=== PATIENT | female | born 1980 | race Caucasian/White ===

== ENCOUNTER 2017-12-20 11:39 | Emergency (ER) | payer OTHER ==
[2017-12-20] MEDS ORDERED: ONDANSETRON 4 MG/2 ML VIAL ONE ×2 (12:02→13:08)
[2017-12-20 12:14] LABS: Absolute Lymphocytes (CBC) 0.9 K/uL (0.7-4.9); Absolute Monocytes 0.7 K/uL (0.1-1.3); Absolute Neutrophil 6.4 K/uL (1.8-8.0); Basophils % 0.2 % (0-1.3); Eosinophils % 0.6 % (0-4.4); Lymphocytes % 11.4 % (15.3-44.8); MCH 32.1 pg (27.0-35.0); MCV 94.2 fL (80-100); MPV 7.7 fL (7.6-11.3); Monocytes % 8.3 % (3.3-12.3); RBC Red Blood Cell Count 4.35 M/uL (3.86-4.86)
--- NOTE | 2017-12-20 12:23 | RAD REPORT ---
EXAM DESCRIPTION: CT - Head Brain Wo Cont - 12/20/2017 12:08 pm CLINICAL HISTORY: Headache COMPARISON: None. TECHNIQUE: Computed axial tomography of the head was obtained. IV contrast was not requested. All CT scans are performed using dose optimization technique as appropriate and may include automated exposure control or mA/KV adjustment according to patient size. FINDINGS: An intracranial bleed is not seen . The ventricles are normal in caliber. No extra-axial fluid collection is noted. Fluid within the sinuses/ mastoids is not seen. IMPRESSION: No acute intracranial abnormality is seen. If patient's symptoms persist MRI of the bra in would be recommended.
[2017-12-20 12:41] LABS: BUN Blood Urea Nitrogen 10 mg/dL (7-18); Bicarbonate 23 mmol/L (21-32); Glucose Level 94 mg/dL (74-106); Magnesium 1.7 mg/dL (1.8-2.4); Sodium Level 139 mmol/L (136-145)
[2017-12-20 12:44] LABS: Potassium 2.6 mmol/L (3.5-5.1)
[2017-12-20] MEDS ORDERED: POTASSIUM CL SA 10 MEQ TAB PO ONE (13:08)
[2017-12-20] MEDS ORDERED: MAGNESIUM SULFATE 1 gm IVPB 1 GM/100 ML BAG IV ONE (13:08)
[2017-12-20] MEDS ORDERED: NA CHLORIDE 0.9% 1,000 ML ONE (13:09)
[2017-12-20] MEDS ORDERED: KCL 20 MEQ/100 mL IVPB 20 MEQ/100 ML BAG IV ONE (13:09)
[2017-12-20 14:23] LABS: Urine Bacteria <20 /HPF (<20); Urine Culture Reflex Order NOT NEEDED; Urine RBC NONE SEEN /HPF (NONE SEEN)
[2017-12-20 14:25] LABS: Urine Blood NEGATIVE (NEG); Urine Glucose NEGATIVE (NEG); Urine Protein NEGATIVE (NEG); Urine Specific Gravity 1.015 (1.005-1.030)
--- NOTE | 2017-12-20 14:30 | ER ---
Nurse's Notes [facility] Name: Radha Love Age: 36 yrs Sex: Female : 1980 Arrival Date: 12/20/2017 Time: 11:41 Bed 4 Private MD: Diagnosis: Dehydration;Hypokalemia;Hypomagnesemia;Heat exhaustion, unspecified Presentation: 12/20 11:50 Presenting complaint: EMS states: Pt was out on the water, began to experience severe ph cramping/pain in L arm and hand and then the same pain in the R hand and arm, unable to obtain automatic BP, 140/98 manual HR 110, Pt awake but not verbally responsive for EMS, hx of HTN and Salmon's Palsy. (Pt noted to be A\T\O x 4 upon arrival to ED). Transition of care: patient was not received from another setting of care. Onset of symptoms was December 20, 2017. Risk Assessment: Do you want to hurt yourself or someone else? Patient reports no desire to harm self or others. Initial Sepsis Screen: Does the patient meet any 2 criteria? No. Patient's initial sepsis screen is negative. Does the patient have a suspected source of infection? No. Patient's initial sepsis screen is negative. Care prior to arrival: None. 11:50 Method Of Arrival: EMS: [facility] ph 11:50 Acuity: QUINTEN 3 ph Historical: - Allergies: 12:01 No Known Allergies; ph - Home Meds: 12:01 None [Active]; ph - PMHx: 12:01 Hypertension; Salmon's Palsy; ph - Immunization history:: Adult Immunizations unknown. - Social history:: Smoking status: Patient/guardian denies using tobacco. - Family history:: not pertinent. - Ebola Screening: : No symptoms or risks identified at this time. - Hospitalizations: : No recent hospitalization is reported. Screenin:54 Abuse screen: Denies threats or abuse. Denies injuries from another. Nutritional ph screening: No deficits noted. Tuberculosis screening: No symptoms or risk factors identified. Fall Risk None identified. Assessment: 12:00 General: Appears in no apparent distress. uncomfortable, slender, well groomed, ph Behavior is cooperative, appropriate for age, anxious, Denies fever, feeling ill. Pain: Complains of pain in right hand, left hand, right arm and left arm Quality of pain is described as crampy. Neuro: Level of Consciousness is awake, alert, obeys commands, Oriented to person, place, time, situation, Denies difficulty swallowing, headache. Cardiovascular: Reports nausea, Denies chest pain, shortness of breath, Capillary refill < 3 seconds Patient's skin is warm and dry. Rhythm is sinus rhythm. Respiratory: Airway is patent Respiratory effort is even, unlabored, Respiratory pattern is tachypnea. GI: Reports nausea, Patient currently denies abdominal pain, diarrhea, vomiting. : No signs and/or symptoms were reported regarding the genitourinary system. Derm: Skin is intact, Skin is pink, warm \T\ dry. Musculoskeletal: upper extremities noted to be contracted at wrists and fingers Reports pain in right arm and left arm. 13:00 Reassessment: Patient appears in no apparent distress at this time. Patient and/or ph family updated on plan of care and expected duration. Pain level reassessed. Patient is alert, oriented x 3, equal unlabored respirations, skin warm/dry/pink. Pt resting quietly, appears more relaxed, continues to c/o nausea an reports pain in micha arms, contractures no longer noted. 13:38 Reassessment: Patient appears in no apparent distress at this time. Patient and/or ph family updated on plan of care and expected duration. Pain level reassessed. Patient is alert, oriented x 3, equal unlabored respirations, skin warm/dry/pink. Pt ambulated to restroom gait steady, urine sample obtained. 13:48 Reassessment: Patient appears in no apparent distress at this time. Pt reports that ph nausea has improved. 14:31 Reassessment: Patient appears in no apparent distress at this time. Patient and/or ph family updated on plan of care and expected duration. Pain level reassessed. Patient is alert, oriented x 3, equal unlabored respirations, skin warm/dry/pink. D/C pending completion of IV medications. 15:05 Reassessment: Patient appears in no apparent distress at this time. Patient and/or ph family updated on plan of care and expected duration. Pain level reassessed. Patient is alert, oriented x 3, equal unlabored respirations, skin warm/dry/pink. IV meds complete, pt d/c home w/ family. Vital Signs: 11:53 BP 123 / 90; Pulse 91; Resp 24; Temp 98.2; Pulse Ox 100% on R/A; Weight 58.97 kg; ph Height 5 ft. 2 in. (157.48 cm); 12:53 BP 134 / 84; Pulse 82; Resp 15; Pulse Ox 100% on R/A; dh3 13:37 BP 133 / 83; Pulse 84; Resp 16; Pulse Ox 100% on R/A; dh3 15:05 BP 141 / 84; Pulse 82; Resp 18; Temp 97.8; Pulse Ox 99% on R/A; ph 11:53 Body Mass Index 23.78 (58.97 kg, 157.48 cm) ph ED Course: 11:41 Patient arrived in ED. em1 11:45 Sebas Reaves MD is Attending Physician. rn 11:53 Triage completed. ph 11:54 Arm band placed on. ph 11:58 Initial lab(s) drawn, by ut, sent to lab. Inserted saline lock: 20 gauge in right dh3 antecubital area, using aseptic technique. Blood collected. 12:01 Patient has correct armband on for positive identification. Bed in low position. Call ph light in reach. Side rails up X 1. manager finance on. Pulse ox on. NIBP on. Warm blanket given. 12:04 EKG done, by cert pharmacy tech. reviewed by Sebas Reaves MD TIMES TWO. sm3 12:[address] via stretcher. vm2 12:07 CT completed. Patient tolerated procedure well. Patient moved back from CT. vm2 12:08 CT Head Brain wo Cont In Process Unspecified. EDMS 12:59 Aidee Marie, RN is Primary Nurse. ph 15:06 No provider procedures requiring assistance completed. IV discontinued, intact, ph bleeding controlled, No redness/swelling at site. Pressure dressing applied. Administered Medications: 12:15 Drug: Zofran 4 mg Route: IVP; Site: right antecubital; ph 13:27 Follow up: Response: No adverse reaction; Nausea unchanged ph 13:25 Drug: Potassium Chloride 40 mEq Route: PO; ph 15:07 Follow up: Response: No adverse reaction ph 13:25 Drug: Zofran 4 mg Route: IVP; Site: right antecubital; ph 15:07 Follow up: Response: No adverse reaction; Nausea is decreased ph 13:25 Drug: Magnesium Sulfate 1 grams Route: IVPB; Infused Over: 1 hrs; Site: right ph antecubital; 15:08 Follow up: Response: No adverse reaction; IV Status: Completed infusion ph 13:26 Drug: NS 0.9% 1000 ml Route: IV; Rate: 1000 ml; Site: right antecubital; ph 15:08 Follow up: Response: No adverse reaction; IV Status: Completed infusion ph 13:26 Drug: Potassium Chloride 20 mEq Route: IV; Rate: calculated rate; Site: right ph antecubital; 15:07 Follow up: Response: No adverse reaction; IV Status: Completed infusion ph Outcome: 14:29 Discharge ordered by . rn 15:06 Discharged to home ambulatory, with family. ph 15:06 Condition: improved 15:06 Discharge instructions given to patient, Instructed on discharge instructions, follow up and referral plans. Demonstrated understanding of instructions, follow-up care. 15:09 Patient left the ED. ph Signatures: Dispatcher [employer] EDMS Sebas Reaves MD MD rn Martinez, Eric em1 Aidee Marie RN RN ph McGuire, Victoria 2 Chasity Ulloa 3 Myranda Vickers 3 Corrections: (The following items were deleted from the chart) 15:09 11:50 Presenting complaint: EMS states: Pt was out on the water, began to experience ph sever cramping/pain in L arm and hand and then the same pain in the R hand and arm, unable to obtain automatic BP, 140/98 manual HR 110, Pt awake but not verbally responsive for EMS, hx of HTN and Salmon's Palsy. (Pt noted to be A\T\O x 4 upon arrival to ED) ph
--- NOTE | 2017-12-20 14:30 | EDPHYS ---
Physician Documentation [facility] Name: Radha Love Age: 36 yrs Sex: Female : 1980 Arrival Date: 12/20/2017 Time: 11:41 Bed 4 Private MD: ED Physician Sebas Reaves HPI: 12/20 11:49 This 36 yrs old Female presents to ER via Unassigned with complaints of rn cramps. 11:49 Reports felt fine this morning, was out fishing since 0800 on boat, began having upper rn arm cramping, can't open her hands, + pain to fingers, has had finger tingling and problems in past, no previous stroke, no other focal neurological complaint, no head injury, drank all day yesterday, feels thirsty. . Onset: The symptoms/episode began/occurred today. Severity of symptoms: At their worst the symptoms were moderate in the emergency department the symptoms have improved. The patient has experienced similar episodes in the past. The patient has not recently seen a physician. Historical: - Allergies: 12:01 No Known Allergies; ph - Home Meds: 12:01 None [Active]; ph - PMHx: 12:01 Hypertension; Salmon's Palsy; ph - Immunization history:: Adult Immunizations unknown. - Social history:: Smoking status: Patient/guardian denies using tobacco. - Family history:: not pertinent. - Ebola Screening: : No symptoms or risks identified at this time. - Hospitalizations: : No recent hospitalization is reported. ROS: 11:49 Constitutional: Negative for fever, chills, and weight loss, Eyes: Negative for injury, rn pain, redness, and discharge, Cardiovascular: Negative for chest pain, palpitations, and edema, Respiratory: Negative for shortness of breath, cough, wheezing, and pleuritic chest pain, Abdomen/GI: Negative for abdominal pain, nausea, vomiting, diarrhea, and constipation, MS/Extremity: Negative for injury and deformity, Skin: Negative for injury, rash, and discoloration, Neuro: Negative for seizure Exam: 11:49 Constitutional: This is a well developed, well nourished patient who is awake, alert, rn appears anxious Head/Face: Normocephalic, atraumatic. Eyes: Pupils equal round and reactive to light, extra-ocular motions intact. Lids and lashes normal. Conjunctiva and sclera are non-icteric and not injected. Cornea within normal limits. Periorbital areas with no swelling, redness, or edema. ENT: dry MM Cardiovascular: Regular rate and rhythm with a normal S1 and S2. No gallops, murmurs, or rubs. Normal PMI, no JVD. No pulse deficits. Respiratory: Lungs have equal breath sounds bilaterally, clear to auscultation and percussion. No rales, rhonchi or wheezes noted. No increased work of breathing, no retractions or nasal flaring. Abdomen/GI: Soft, non-tender, with normal bowel sounds. No distension or tympany. No guarding or rebound. No evidence of tenderness throughout. MS/ Extremity: Pulses equal, no cyanosis. Bilateral upper extremities in contracted state, able to lift from shoulder but hands cramping and contracted. Neuro: Awake and alert, GCS 15, oriented to person, place, time, and situation. Cranial nerves II-XII grossly intact. Motor strength 5/5 in all extremities. Sensory grossly intact. Vital Signs: 11:53 BP 123 / 90; Pulse 91; Resp 24; Temp 98.2; Pulse Ox 100% on R/A; Weight 58.97 kg; ph Height 5 ft. 2 in. (157.48 cm); 12:53 BP 134 / 84; Pulse 82; Resp 15; Pulse Ox 100% on R/A; dh3 13:37 BP 133 / 83; Pulse 84; Resp 16; Pulse Ox 100% on R/A; dh3 15:05 BP 141 / 84; Pulse 82; Resp 18; Temp 97.8; Pulse Ox 99% on R/A; ph 11:53 Body Mass Index 23.78 (58.97 kg, 157.48 cm) ph MDM: 11:45 Patient medically screened. rn 13:02 ED course: Pt improved, hands not contracted. rn 14:28 Differential Diagnosis dehydration, heat exhaustion, electrolyte disorder. Data rn reviewed: vital signs, nurses notes, lab test result(s), EKG, radiologic studies, CT scan, and as a result, I will discharge patient. Counseling: I had a detailed discussion with the patient and/or guardian regarding: the historical points, exam findings, and any diagnostic results supporting the discharge/admit diagnosis, lab results, radiology results, the need for outpatient follow up, to return to the emergency department if symptoms worsen or persist or if there are any questions or concerns that arise at home. Response to treatment: the patient's symptoms have resolved after treatment, the patient's condition has returned to base line, the patient is now symptom free, patient is well hydrated. and as a result, I will discharge patient. Special discussion: I discussed with the patient/guardian in detail that at this point there is no indication for admission to the hospital. It is understood, however, that if the symptoms persist or worsen the patient needs to return immediately for re-evaluation. 12/20 11:47 Order name: CBC with Diff; Complete Time: 12:30 12/20 11:47 Order name: Basic Metabolic Panel; Complete Time: 12:45 rn 12/20 11:47 Order name: Urine Microscopic Only; Complete Time: 14:26 12/20 11:47 Order name: Magnesium; Complete Time: 12:45 12/20 14:07 Order name: Urine Dipstick--Ancillary (enter results); Complete Time: 14:26 [facility] 12/20 11:47 Order name: CT Head Brain wo Cont; Complete Time: 12:30 12/20 14:07 Order name: Urine --Ancillary (enter results); Complete Time: 14:26 [facility] 12/20 11:47 Order name: IV Start; Complete Time: 12:13 12/20 11:47 Order name: Urine Test (obtain specimen); Complete Time: 12:03 12/20 11:47 Order name: Urine Dipstick-Ancillary (obtain specimen); Complete Time: 14:06 12/20 11:47 Order name: EKG - Nurse/Tech; Complete Time: 12:01 12/20 11:47 Order name: EKG; Complete Time: 11:47 12/20 12:04 Order name: EKG Electrocardiogram EDMS Administered Medications: 12:15 Drug: Zofran 4 mg Route: IVP; Site: right antecubital; ph 13:27 Follow up: Response: No adverse reaction; Nausea unchanged ph 13:25 Drug: Potassium Chloride 40 mEq Route: PO; ph 15:07 Follow up: Response: No adverse reaction ph 13:25 Drug: Zofran 4 mg Route: IVP; Site: right antecubital; ph 15:07 Follow up: Response: No adverse reaction; Nausea is decreased ph 13:25 Drug: Magnesium Sulfate 1 grams Route: IVPB; Infused Over: 1 hrs; Site: right ph antecubital; 15:08 Follow up: Response: No adverse reaction; IV Status: Completed infusion ph 13:26 Drug: NS 0.9% 1000 ml Route: IV; Rate: 1000 ml; Site: right antecubital; ph 15:08 Follow up: Response: No adverse reaction; IV Status: Completed infusion ph 13:26 Drug: Potassium Chloride 20 mEq Route: IV; Rate: calculated rate; Site: right ph antecubital; 15:07 Follow up: Response: No adverse reaction; IV Status: Completed infusion ph Disposition: 12/20/17 14:29 Discharged to Home. Impression: Dehydration, Hypokalemia, Hypomagnesemia, Heat exhaustion, unspecified. - Condition is Stable. - Discharge Instructions: Dehydration, Adult, Potassium Content of Foods, Hypomagnesemia, Hypokalemia. - Medication Reconciliation Form, Thank You Letter, Antibiotic Education, Prescription Opioid Use form. - Follow up: Private Physician; When: As needed; Reason: Recheck today's complaints, Re-evaluation by your physician. - Problem is new. - Symptoms have improved. Signatures: Dispatcher [employer] [facility] Sebas Reaves MD MD rn Hall, Patricia, RN RN ph Corrections: (The following items were deleted from the chart) 11:48 11:47 CALCIUM+C.LAB.BRZ ordered. [facility] 15:09 14:29 12/20/2017 14:29 Discharged to Home. Impression: Dehydration; Hypokalemia; ph Hypomagnesemia; Heat exhaustion, unspecified. Condition is Stable. Forms are Medication Reconciliation Form, Thank You Letter, Antibiotic Education, Prescription Opioid Use. Follow up: Private Physician; When: As needed; Reason: Recheck today's complaints, Re-evaluation by your physician. Problem is new. Symptoms have improved. rn
--- NOTE | 2017-12-20 18:45 | EKG ---
Test Date: 2017-12-20 Test Time: 11:42:21 Buttonhole Facer: AGUEDA MEASUREMENT RESULTS: Intervals: Rate: 91 CO: 154 QRSD: 76 QT: 364 QTc: 447 [place]: P: 50 CO: 154 QRS: 22 T: 32 INTERPRETIVE STATEMENTS: Normal sinus rhythm ST abnormality, possible digitalis effect Abnormal ECG No previous ECG available for comparison Electronically Signed On 12-20-17 18:44:43 CDT by Reji Cerda
--- NOTE | 2017-12-20 18:45 | EKG ---
Test Date: 2017-12-20 Test Time: 11:43:07 Roofer: AGUEDA MEASUREMENT RESULTS: Intervals: Rate: 93 TX: 154 QRSD: 78 QT: 358 QTc: 445 [place]: P: 41 TX: 154 QRS: 24 T: 43 INTERPRETIVE STATEMENTS: Normal sinus rhythm with sinus arrhythmia Normal ECG Compared to ECG 12/20/2017 11:42:21 ST (T wave) deviation no longer present Electronically Signed On 12-20-17 18:44:33 CDT by Reji Cerda
== END 2017-12-20 15:09 | disposition home or self-care (01) ==
LOC: ER 11:39
DX: E86.0 Dehydration (principal); E87.6 Hypokalemia; E83.42 Hypomagnesemia; T67.5XXA Heat exhaustion, unspecified, initial encounter; X58.XXXA Exposure to other specified factors, initial encounter; Y93.89 Activity, other specified; Y92.89 Other specified places as the place of occurrence of the external cause; I10 Essential (primary) hypertension
CPT/HCPCS: 36415; 70450; 80048; 81003; 81015; 81025; 83735; 85025; 93005; 96361; 96365; 96368; 96375; 99285; J2405; J3475; J7030